=== PATIENT | female | born 1945 | race Caucasian/White ===

== ENCOUNTER 2017-12-30 06:06 | Emergency (ER) | payer OTHER, MEDICAID ==
--- NOTE | 2017-12-30 06:22 | EDPHY ---
H & P <Alley Mendoza - Last Filed: 12/30/17 08:37> - Personal History Tetanus Vaccine Date: UNKNOWN <Alberto Hurtado - Last Filed: 12/30/17 22:34> Time Seen by Provider: 12/30/17 06:16 HPI/ROS: Chief Complaint: Fall, chest wall abrasion HPI: 72-year-old woman who is a resident of [facility] being brought in for evaluation after the patient was found pinned between her bed and an assist rail. It appeared that the patient had fallen out of bed and became entangled in the rail. Per EMS report when staff found her she appeared to be a little bit blew and is a little more confused than normal. She does have a history of dementia secondary to a CVA. Patient is normally conversant at baseline but seems more confused. No reports of fevers or chills. She did seem to have some emesis in her hair. Remainder of the history is unavailable as the patient is currently nonverbal. EMS reports that did not appear that she actually fell from her bed but actually slid out of bed and became and snared. There is no obvious head trauma. ROS: Unavailable secondary to the patient's dementia PMH: CVA, dementia, essential hypertension, osteoporosis, Alzheimer's disease, renal insufficiency, vitamin-D insufficiency dependent edema Social History: No smoking, no alcohol, no recreational drug use Family History: non-contributory Physical Exam: Gen: Awake, Alert, No Distress, nonverbal HEENT: Head is atraumatic Nose: no rhinorrhea Eyes: PERRLA, EOMI Mouth: Moist mucosa Neck: Supple, no JVD Chest: nontender, lungs clear to auscultation Heart: S1, S2 normal, no murmur Abd: Soft, there is an abrasion and erythema on her right abdominal wall that is approximately 3 cm in width and 15 cm in length consistent with a pressure point against a pole. There is 1 small area of skin excoriation. mild right- sided tenderness around the area of erythema, no guarding Back: no CVA tenderness, no midline tenderness Ext: no edema, non-tender Skin: no rash Neuro: CN II-XII intact, Sensation grossly intact, Strength 5/5 in bilateral upper and lower extremities (Alberto Hurtado) Constitutional: Initial Vital Signs Temperature (C) 36.7 C 12/30/17 06:14 Heart Rate 100 12/30/17 06:14 Respiratory Rate 20 12/30/17 06:14 Blood Pressure 137/91 H 12/30/17 06:14 O2 Sat (%) 94 12/30/17 06:14 O2 Delivery Mode Room Air O2 (L/minute) 1 Allergies/Adverse Reactions: gluten Allergy (Verified 12/30/17 06:14) Home Medications: Medication Instructions Recorded Cyanocobalamin [Vitamin B12 1000 1,000 mcg PO DAILY 06/29/12 MCG (OTC)] Folic Acid 0.4 mg PO DAILY 06/29/12 Ibuprofen 400 mg PO BID PRN 06/29/12 amLODIPine BESYLATE [Norvasc 10 mg 10 mg PO DAILY 06/29/12 (RX)] Calcium Carbonate [Oyster Shell 500 mg PO TID 03/20/13 Calcium 500 mg (OTC)] Cholecalciferol Vit D3 [Vitamin D3 1,000 units PO DAILY 03/20/13 1000 units (OTC)] Escitalopram Oxalate [Lexapro 10 10 mg PO DAILY 03/20/13 MG (RX)] Losartan Potassium [Cozaar 50 mg 100 mg PO DAILY 03/20/13 (RX)] Memantine HCl [Namenda 5 mg (RX)] 10 mg PO BID 03/20/13 Multivitamins [Tab-A-Marilu] 1 each PO DAILY 03/20/13 Pharmacist Completed 03/20/13 03/20/13 Cephalexin [Keflex (RX)] 500 mg PO TID 7 Days cap 12/30/17 Medical Decision Making <Alley Mendoza - Last Filed: 12/30/17 08:37> <Alberto Hurtado - Last Filed: 12/30/17 22:34> ED Course/Re-evaluation: I assumed care of this patient at [address] Vijay Hurtado. Patient's urine is consistent with urinary tract infection. On re-examination, the patient continues to have stable vital signs. She does have abdominal tenderness on my examination. Patient does have a significant abrasion/erythematous region with a blistered area consistent with pressure sore across her upper abdomen. Patient did undergo CT scan of her abdomen pelvis to further evaluate for intra- abdominal trauma. CT scan demonstrates worsening L1 compression fracture of unknown age, a 4 cm sigmoid spasm verses section of sigmoid colon, findings consistent with potential right pyelonephritis, and gallstones. Patient received 1 g of ceftriaxone in the emergency department. She will be placed on Keflex by mouth at her half-way. Patient's primary care physician will need to follow-up on the patient's sigmoid findings. (Alley Mendoza) 0700 72-year-old from half-way after fall with potential long why and abrasion her abdomen with tenderness. Her abdomen is otherwise soft she has no peritoneal signs at this time. Blood work is unremarkable. She is signed out to Dr. Mendoza for urinalysis results. She did not hit her head. No evidence of head trauma. I do not think a CT scan of her head is indicated. (Alberto Hurtado) Differential Diagnosis: Differential diagnoses for the patient's symptom complex was considered including but not limited to intra-abdominal trauma, blunt abdominal trauma, abrasion, laceration, chest trauma, pneumothorax, rib fracture, urinary tract infection, pyelonephritis. (Alley Mendoza) - Data Points Laboratory Results: Laboratory Results 12/30/17 06:25 12/30/17 06:25 Medications Given: Discontinued Medications Fentanyl (Sublimaze) 25 mcg IVP EDNOW ONE Stop: 12/30/17 07:35 Last Admin: 12/30/17 09:06 Dose: Not Given Sodium Chloride (Ns) 1,000 mls @ 0 mls/hr IV ONCE ONE; Wide Open PRN Reason: Protocol Stop: 12/30/17 06:52 Last Admin: 12/30/17 06:54 Dose: 1,000 mls Ceftriaxone Sodium/Dextrose (Rocephin 1 Gm (Premix)) 50 mls @ 100 mls/hr IV EDNOW ONE PRN Reason: Protocol Stop: 12/30/17 08:49 Last Admin: 12/30/17 08:28 Dose: 50 mls Departure <Alley Mendoza - Last Filed: 12/30/17 08:37> <Alberto Hurtado - Last Filed: 12/30/17 22:34> - Departure Disposition: Home, Routine, Self-Care Clinical Impression: Urinary tract infection in elderly patient Abdominal wall contusion Qualifiers: Encounter type: initial encounter Qualified Code(s): S30.1XXA - Contusion of abdominal wall, initial encounter Condition: Good Instructions: Urinary Tract Infection in Older Adults (ED) Additional Instructions: 1. Take Keflex as directed for the entire course of antibiotics. Do not discontinue if symptoms resolve before the course is finished. 2. Her CT scan does show some worsening of a L1 compression fracture. It is not clear if this is new or old. You may take Tylenol or ibuprofen as needed for discomfort in your back. 3. Follow up with your primary care provider for continued symptoms. 4. Return to the emergency department for any worsening of condition. Referrals: Dayanna Martinez MD [Medical Doctor] - As per Instructions Prescriptions: Cephalexin [Keflex (RX)] 500 mg PO TID 7 Days cap Report Scribed for: Alley Mendoza Report Scribed by: Leelee Christian Date of Report: 12/30/17 Time of Report: 07:48 <Alley Mendoza - Last Filed: 12/30/17 08:37> <Alberto Hurtado - Last Filed: 12/30/17 22:34> Physician Review and Approval Statement: 12/30/17 07:48 Portions of this note were transcribed by a medical technologist blood bank. I personally performed a history, physical exam, medical decision making, and confirmed accuracy of information the transcribed note. (Alley Mendoza)
[2017-12-30 06:34] LABS: PLATELET COUNT 168 10^3/uL (150-400)
[2017-12-30] MEDS ORDERED: NS 1,000 ML IV ONE (06:51)
[2017-12-30] MEDS ORDERED: fentaNYL 100 MCG/2 ML INJ IVP ONE (07:34)
[2017-12-30 07:35] VITALS: TEMP 98.2
[2017-12-30] MEDS ORDERED: IOPAMIDOL (ISOVUE-300) 100 ML BTL ONE (07:39)
[2017-12-30 09:08] VITALS: RESP 14
[2017-12-30 10:43] VITALS: BP 156/92; PULSE 84; O2SAT 94
--- NOTE | 2017-12-30 16:06 | ASMTCMCOM ---
CM Note CM Note Notes: Requested to assist patient with returning to [facility]. Pt unable to ambulate independently, has dementia, UTI and has possible worsening of L1 compression fracture. NEMT stretcher transport arranged through [facility]; PCS completed, copy provided to [facility] and original to be scanned into chart. Attempted to call and give RN report but BM front office medical assistant was unable to get through to nurses station, message left to have BM RN call ED if they have questions. ED transfer report printed and provided to [facility]. Date Signed: 12/30/2017 04:05 PM Electronically Signed By:Loreto Ibrahim RN
--- NOTE | 2017-12-30 16:14 | ASDISCHSUM ---
Discharge Information Plan Status:SNF Medically Cleared to Leave: Discharge Date:12/30/2017 10:50 AM CM D/C Disposition:Group Home Facility ADT D/C Disposition:Home, Routine, Self-Care Projected Discharge Date:12/30/2017 10:50 AM Transportation at D/C:ALS/BLS Discharge Delay Reason: Follow-Up Date:12/30/2017 10:50 AM Discharge Slot: Final Diagnosis: Placement Information Patient Contact Information Contact Name:JANIA Relationship:Friend Address:[address] Work Phone: City:[place] Phone: State/Zip Code:[place] [address] Email: Financial Information Financial Class:Medicare Primary Plan Desc:MEDICARE OUTPATIENT Primary Plan Number:[id number] Secondary Plan Desc:MEDICAID [place] Secondary Plan Number:[id number] Assessment Information [facility] CM Progress Note CM Note CM Note Notes: Requested to assist patient with returning to [facility]. Pt unable to ambulate independently, has dementia, UTI and has possible worsening of L1 compression fracture. NEMT stretcher transport arranged through [facility]; PCS completed, copy provided to [facility] and original to be scanned into chart. Attempted to call and give RN report but front load trash truck driver was unable to get through to nurses station, message left to have RN call ED if they have questions. ED transfer report printed and provided to [facility]. Date Signed: 12/30/2017 04:05 PM Electronically Signed By:Loreto Ibrahim RN LACE OANH Acuity / Level of Answers: No Care: Did the patient have an inpatient admission? Comorbidities - select Answers: Cerebrovascular disease all that apply (CVA, TIA, aneurysms, vasc ular dementia) Dementia History of falls # of Emergency department Answers: 1-2 visits in the last 6 months Score: 8 Date Signed: 12/30/2017 04:11 PM Electronically Signed By:Loreto Ibrahim RN Intervention Information Intervention Type:Transportation Date of Service:12/30/2017 04:11 PM Patient Type:Emergency Room Staff Member:AMENA Ibrahim, Loreto Hours:0.25 Discipline:Power Electronics Engineer Severity: Comment:NEMT stretcher transport via [facility]; PCS completed. Original to be scanned into pt chart; copy provided to [facility].
== END 2017-12-30 10:50 | disposition home or self-care (01) ==
LOC: EDUNIT#
DX: S30.1XXA Contusion of abdominal wall, initial encounter (principal); N39.0 Urinary tract infection, site not specified; I10 Essential (primary) hypertension; G30.9 Alzheimer's disease, unspecified; B96.20 Unspecified Escherichia coli [E. coli] as the cause of diseases classified elsewhere; E86.9 Volume depletion, unspecified; Z86.73 Personal history of transient ischemic attack (TIA), and cerebral infarction without residual deficits; W06.XXXA Fall from bed, initial encounter; Y99.8 Other external cause status; Y93.89 Activity, other specified
CPT/HCPCS: 71046; 74177; 96361; 96365; 99285; J0696; Q9967